=== PATIENT | female | born 1980 | race Caucasian/White ===

== ENCOUNTER 2020-11-08 13:20 | Emergency (ER) | payer BC ==
--- NOTE | 2020-11-08 13:54 | EDM.PDOC ---
ED HPI GENERAL MEDICAL PROBLEM - General Chief Complaint: General Stated Complaint: HEMMORHOID Time Seen by Provider: 11/08/20 13:30 Source of Information: Reports: Patient, RN Notes Reviewed History Limitations: Reports: No Limitations - History of Present Illness INITIAL COMMENTS - FREE TEXT/NARRATIVE: Patient is a 40-year-old female presenting to the emergency department with complaints of painful hemorrhoid. She reports that she has been dealing with this hemorrhoid since approximately July and that it "comes and goes". Over the last week, it has been much more uncomfortable. 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 She has been using [id number] topical and suppository Preparation H, Tucks pads, warm baths, and ibuprofen with little relief. Currently rating pain 2 out of 10. She is had no bleeding. Reports that she has had problems with hemorrhoids ever since she had children. Denies any constipation. Rectal Pain Score (Numeric/FACES): 2 - Related Data Allergies Allergy/AdvReac Type Severity Reaction Status Date / Time bupropion [From Wellbutrin] Allergy Anaphylactic Verified 11/08/20 13:35 Shock Home Meds: Home Meds Albuterol [Ventolin HFA] 2 puff INH DAILY 11/08/20 [History] Benzocaine [Americaine] 28 gm TP ASDIRECTED #28 g 11/08/20 [Rx] Fluticasone Propionate [Flovent HFA] 1 puff INH BID 11/08/20 [History] Hydrocortisone [Anusol-HC] 30 gm TOP BID #1 cream..g. 11/08/20 [Rx] Melatonin 1 mg PO DAILY PRN 11/08/20 [History] Sertraline [Zoloft] 50 mg PO DAILY 11/08/20 [History] busPIRone [Buspar] 5 mg PO DAILY 11/08/20 [History] Past Medical History HEENT History: Reports: Impaired Vision Respiratory History: Reports: Other (See Below) Other Respiratory History: "some lung disease that requires me to use albuterol inhaler daily, but it's not asthma" Gastrointestinal History: Reports: Hemorrhoids Genitourinary History: Reports: Renal Calculus Psychiatric History: Reports: Anxiety, Depression - Past Surgical History HEENT Surgical History: Reports: Oral Surgery Female Surgical History: Reports: Hysterectomy, Lithotripsy/ESWL, Tubal Ligation, Other (See Below) Other Female Surgeries/Procedures: cysts removed from ovaries Dermatological Surgical History: Reports: Other (See Below) Social & Family History - Tobacco Use Tobacco Use Status *Q: Current Every Day Tobacco User Years of Tobacco use: 23 Packs/Tins Daily: 0.5 - Caffeine Use Caffeine Use: Reports: None - Recreational Drug Use Recreational Drug Use: No ED ROS GENERAL - Review of Systems Review Of Systems: Comprehensive ROS is negative, except as noted in HPI. ED EXAM, GENERAL - Physical Exam Exam: See Below General Appearance: Alert, WD/WN, No Apparent Distress Respiratory/Chest: No Respiratory Distress, Lungs Clear, Normal Breath Sounds, No Accessory Muscle Use, Chest Non-Tender Cardiovascular: Normal Peripheral Pulses, Regular Rate, Rhythm, No Edema, No Gallop, No JVD, No Murmur, No Rub Rectal (Female) Exam: Hemorrhoids (Moderate sized hemorrhoid at the 6 o'clock position. No evidence of thrombosis. No bleeding.) Neurological: Alert, Oriented, CN II-XII Intact, Normal Cognition, Normal Gait, Normal Reflexes, No Motor/Sensory Deficits Psychiatric: Normal Affect, Normal Mood Course - Vital Signs Last Recorded V/S: Last Vital Signs Temp 98.4 F 11/08/20 13:31 Pulse 79 11/08/20 13:31 Resp 18 11/08/20 13:31 BP 117/79 11/08/20 13:31 Pulse Ox 99 11/08/20 13:31 - Re-Assessments/Exams Free Text/Narrative Re-Assessment/Exam: Patient is a 40-year-old female presenting to the emergency department with com plaints of painful hemorrhoid. She reports she has been dealing with this hemorrhoid off and on since July. Over the last week, it has been increasingly uncomfortable. She has been using [id number] Preparation H topical and suppository, Tucks pads, and ibuprofen with little relief. On exam, she does have a marble sized external hemorrhoid at the 6 o'clock position. There is no evidence of thrombosis or bleeding at this time. I will send prescription for Anusol HC as well as topical lidocaine cream. Recommend she continue Tucks pads in addition to this. If symptoms do not improve by early next week, I will send referral to general surgeon, Dr. Schneider for evaluation. She is in agreement with this plan. Discharge instructions as documented. Departure - Departure Time of Disposition: 13:57 Disposition: Home, Self-Care 01 Condition: Good Clinical Impression: Acute hemorrhoid - Discharge Information *PRESCRIPTION DRUG MONITORING PROGRAM REVIEWED*: No *COPY OF PRESCRIPTION DRUG MONITORING REPORT IN PATIENT TRUPTI: No Prescriptions: Benzocaine [Americaine] 28 gm TP ASDIRECTED #28 g Hydrocortisone [Anusol-HC] 30 gm TOP BID #1 cream..g. Instructions: Hemorrhoids, [id number] Referrals: Lloyd Schneider MD [Physician] - Forms: ED Department Discharge Additional Instructions: You were seen in the emergency department today for evaluation of painful hemorrhoid. Prescription has been sent for Anusol HC and benzocaine ointment. Use these as prescribed. Continue to use Tucks pads as well as ibuprofen as needed for discomfort. If you do not notice improvement your symptoms by early next week, referral has been sent to Dr. Schneider, general surgeon. You may call his office to set up an appointment. Return to ER as needed. Sepsis Event Note (ED) - Evaluation Sepsis Screening Result: No Definite Risk - Focused Exam Vital Signs: Vital Signs Temp Pulse Resp BP Pulse Ox 11/08/20 13:31 98.4 F 79 18 117/79 99
== END 2020-11-08 14:21 | disposition home or self-care (01) ==
LOC: JD.ED 13:20
DX: K64.4 Residual hemorrhoidal skin tags (principal); Z88.8 Allergy status to other drugs, medicaments and biological substances; Z72.0 Tobacco use
CPT/HCPCS: 99282; 99283